=== PATIENT | female | born 1990 | race Two or more races ===

== ENCOUNTER 2025-08-10 14:06 | Outpatient (CLI) | payer OTHER | END 2025-08-10 14:07 | disposition home or self-care (01) | LOC: PRENATAL 14:06 | PROVIDERS: ATTEND Obstetrics & Gynecology Maternal & Fetal Medicine | DX: O44.02 Complete placenta previa NOS or without hemorrhage, second trimester (principal); O09.512 Supervision of elderly primigravida, second trimester; O34.219 Maternal care for unspecified type scar from previous cesarean delivery; Z3A.21 21 weeks gestation of pregnancy ==